=== PATIENT | male | born 1985 | race Hispanic/Latino ===

== ENCOUNTER 2024-09-25 21:55 | Inpatient (IN) | payer BC, SELFPAY ==
[2024-09-25] MEDS ORDERED: Cefepime 2 GM VIAL ONE (22:21)
[2024-09-25 23:00] LABS: Bilirubin 1+ (Negative); Blood, Urine 50 (Negative); Clarity Slightly Cloudy (Clear); Glucose, Urine (Dipstick) 100 mg/dL (Negative); Ketone, Urine 5 mg/dL (Negative); Leukocyte 100 (Negative); Nitrite Positive (Negative); Protein, Urine (Dipstick) 100 mg/dl (Neg-Trace); Specific Gravity, Urine 1.025 (1.005-1.030)
[2024-09-25] MEDS ORDERED: Ketorolac Tromethamine 30 MG (1 mL) VIAL ONE (23:09)
[2024-09-25 23:14] LABS: CAUTI Indications for Culture Pelvic or flank pain; RBC/HPF 0-3 HPF (0-3); WBC/HPF 21-50 HPF (0-3)
[2024-09-25 23:16] LABS: Bacteria/HPF 3+ HPF (None Seen)
[2024-09-25 23:17] LABS: Urine Culture Reflex Yes Yes
[2024-09-25 23:34] LABS: ALT (SGPT) 58 U/L (8-55); AST (SGOT) 46 U/L (5-34); Albumin 3.1 g/dL (3.5-5.0); Alkaline Phosphatase 53 U/L (40-110); Anion Gap 14 mmol/L (10-20); BUN (Urea Nitrogen) 16 mg/dL (8.9-20.6); Calc. Creatinine Clearance 0 mL/min (70-130); Calcium 8.4 mg/dL (7.8-10.44); Carbon Dioxide 25 mmol/L (22-29); Chloride 98 mmol/L (98-107); Estimated GFR 79; Glucose 159 mg/dL (70-105); Potassium 3.7 mmol/L (3.5-5.1); Protein, Total 7.1 g/dL (6.0-8.3); Sodium 133 mmol/L (136-145)
[2024-09-25 23:35] LABS: Hematocrit 42.1 % (38.8-50.0); Hemoglobin 14.5 g/dL (13.5-17.5); MDiff Complete? YES; Mean Corpuscular HGB CONC 34.4 g/dL (32.0-36.0); Mean Platelet Volume 11.6 fL (7.4-10.4); Platelet Count 119 10x3/uL (150-450); Red Blood Cell (RBC) Count 4.68 10x6/uL (4.32-5.72); White Blood Cell (WBC) Count 9.2 10x3/uL (3.5-10.5)
[2024-09-26 00:10] LABS: Band 35 % (5-11); Lymphocytes 2 % (21-51); Metamyelocyte 3 % (0-0); Monocytes 1 % (0-10); Neutrophil 59 % (42-75)
[2024-09-26 00:14] LABS: RBC Morph Comment Within Normal Limits
[2024-09-26 00:15] LABS: Large Platelets SLIGHT (None Seen); Platelet Adequacy Comment Appears Decreased; Vacuoles SLIGHT
[2024-09-26] MEDS ORDERED: Ondansetron ODT 4 MG TAB PO PRN (00:27)
[2024-09-26] MEDS ORDERED: Acetaminophen 650 MG Suppository PR PRN (00:27)
[2024-09-26] MEDS ORDERED: Ondansetron PF 4 MG/2 ML Vial IVP PRN (00:27)
[2024-09-26] MEDS ORDERED: Morphine 4 MG/ML VIAL ONE (00:47)
[2024-09-26] MEDS ORDERED: Morphine 2 MG/ML VIAL SLOW IVP PRN (00:51)
[2024-09-26 01:24] VITALS: BMI 45.8
[2024-09-26] MEDS: cefTRIAXone\\ROCEPHIN 1 GM in Sodium Chloride 0.9% 100 ML IVPB SCH (02:02)
[2024-09-26 02:15] LABS: #Basophils 0.03 10x3/uL (0.0-0.2); #Eosinophils 0.01 10x3/uL (0.0-0.5); #Monocytes 0.27 10x3/uL (0.0-1.1); #Neutrophils 10.01 10x3/uL (1.5-8.4); %Basophils 0.3 % (0.0-2.0); %Eosinophils 0.1 % (0.0-6.0); %Lymphocytes 3.9 % (18.0-47.0); %Monocytes 2.5 % (0.0-10.0); %Neutrophils 92.6 % (40.0-75.0); Hematocrit 40.8 % (38.8-50.0); Mean Corpuscular HGB CONC 34.3 g/dL (32.0-36.0); Mean Corpuscular Hemoglobin 30.6 pg (27.0-33.0); Mean Corpuscular Volume 89.3 fL (81.2-95.1); Mean Platelet Volume 11.3 fL (7.4-10.4); Platelet Count 112 10x3/uL (150-450); RBC Distribution Width 12.9 % (11.5-14.5); Red Blood Cell (RBC) Count 4.57 10x6/uL (4.32-5.72); White Blood Cell (WBC) Count 10.8 10x3/uL (3.5-10.5)
[2024-09-26 02:53] LABS: Anion Gap 15 mmol/L (10-20); BUN (Urea Nitrogen) 18 mg/dL (8.9-20.6); Calc. Creatinine Clearance 186 mL/min (70-130); Calcium 7.8 mg/dL (7.8-10.44); Carbon Dioxide 18 mmol/L (22-29); Chloride 104 mmol/L (98-107); Estimated GFR 91; Glucose 121 mg/dL (70-105); Potassium 3.8 mmol/L (3.5-5.1); Sodium 133 mmol/L (136-145)
[2024-09-26] MEDS: Hydrochlorothiazide 25 MG TAB PO SCH (08:19)
[2024-09-26] MEDS: Phenazopyridine HCl 95 MG TAB PO SCH (08:20)
[2024-09-26] MEDS: busPIRone HCl 15 MG TAB PO SCH ×2 (08:20→21:35)
[2024-09-26] MEDS: Escitalopram Oxalate 20 mg Tablet PO SCH (08:20)
[2024-09-26] MEDS: Enoxaparin 40 MG (0.4 mL) SYRINGE SC SCH (08:21)
[2024-09-26] MEDS ORDERED: hydrALAZINE 25 MG TAB PO SCH (09:00)
[2024-09-26] MEDS: Acetaminophen 325 MG TAB PO PRN (10:05)
[2024-09-26] MEDS: Ibuprofen 800 MG TAB PO SCH ×2 (11:01→21:36)
[2024-09-26 15:28] LABS: Chlam.trachomatis by PCR,Urine Not Detected (NotDetected); GC N.gonorrhoeae PCR,UrineVOID Not Detected (NotDetected)
[2024-09-26] MEDS ORDERED: Rosuvastatin 10 MG TAB PO SCH (21:00)
[2024-09-26] MEDS: Rosuvastatin 10 MG TAB PO SCH (21:34)
[2024-09-27 04:29] LABS: #Basophils 0.03 10x3/uL (0.0-0.2); #Eosinophils 0.25 10x3/uL (0.0-0.5); #Monocytes 0.46 10x3/uL (0.0-1.1); #Neutrophils 5.98 10x3/uL (1.5-8.4); %Basophils 0.4 % (0.0-2.0); %Eosinophils 3.3 % (0.0-6.0); %Lymphocytes 10.9 % (18.0-47.0); %Neutrophils 78.6 % (40.0-75.0); Hematocrit 39.4 % (38.8-50.0); Hemoglobin 13.4 g/dL (13.5-17.5); Mean Corpuscular Hemoglobin 30.5 pg (27.0-33.0); Mean Corpuscular Volume 89.5 fL (81.2-95.1); RBC Distribution Width 12.9 % (11.5-14.5); White Blood Cell (WBC) Count 7.6 10x3/uL (3.5-10.5)
[2024-09-27 05:02] LABS: Mean Platelet Volume 11.8 fL (7.4-10.4); Platelet Count 102 10x3/uL (150-450)
[2024-09-27] MEDS: Escitalopram Oxalate 20 mg Tablet PO SCH (08:55)
[2024-09-27] MEDS: Hydrochlorothiazide 25 MG TAB PO SCH (08:55)
[2024-09-27 10:46] LABS: Anion Gap 16 mmol/L (10-20); BUN (Urea Nitrogen) 10 mg/dL (8.9-20.6); Calc. Creatinine Clearance 251 mL/min (70-130); Calcium 8.7 mg/dL (7.8-10.44); Carbon Dioxide 19 mmol/L (22-29); Chloride 103 mmol/L (98-107); Estimated GFR 117; Glucose 259 mg/dL (70-105); Potassium 4.6 mmol/L (3.5-5.1); Sodium 133 mmol/L (136-145)
[2024-09-27] MEDS: Morphine 4 MG/ML VIAL SLOW IVP PRN (15:40)
[2024-09-28 04:47] LABS: Anion Gap 14 mmol/L (10-20); BUN (Urea Nitrogen) 8 mg/dL (8.9-20.6); Calc. Creatinine Clearance 279 mL/min (70-130); Calcium 8.7 mg/dL (7.8-10.44); Carbon Dioxide 24 mmol/L (22-29); Chloride 102 mmol/L (98-107); Estimated GFR 121; Glucose 142 mg/dL (70-105); Potassium 3.9 mmol/L (3.5-5.1); Sodium 136 mmol/L (136-145)
[2024-09-28 04:53] LABS: #Basophils 0.02 10x3/uL (0.0-0.2); #Eosinophils 0.15 10x3/uL (0.0-0.5); #Monocytes 0.62 10x3/uL (0.0-1.1); %Basophils 0.3 % (0.0-2.0); %Eosinophils 2.5 % (0.0-6.0); %Lymphocytes 18.2 % (18.0-47.0); %Monocytes 10.4 % (0.0-10.0); %Neutrophils 67.4 % (40.0-75.0); Hematocrit 37.8 % (38.8-50.0); Hemoglobin 13.1 g/dL (13.5-17.5); Mean Corpuscular HGB CONC 34.7 g/dL (32.0-36.0); Mean Corpuscular Hemoglobin 30.3 pg (27.0-33.0); Mean Corpuscular Volume 87.5 fL (81.2-95.1); Mean Platelet Volume 11.4 fL (7.4-10.4); Platelet Count 119 10x3/uL (150-450); Red Blood Cell (RBC) Count 4.32 10x6/uL (4.32-5.72); White Blood Cell (WBC) Count 5.9 10x3/uL (3.5-10.5)
[2024-09-28 12:11] VITALS: BP 144/79; TEMP 97.9
== END 2024-09-28 13:04 | disposition home or self-care (01) | DRG 872 ==
LOC: CSHERS 21:55 → CSHTELE 09-26 00:30
PROVIDERS: ADMIT Family Medicine; ATTEND Internal Medicine
DX: A41.51 Sepsis due to Escherichia coli [E. coli] (principal); N30.00 Acute cystitis without hematuria; Z68.42 Body mass index [BMI] 45.0-49.9, adult; E78.5 Hyperlipidemia, unspecified; I10 Essential (primary) hypertension; F39 Unspecified mood [affective] disorder; E66.01 Morbid (severe) obesity due to excess calories; Z79.899 Other long term (current) drug therapy
CPT/HCPCS: 36415; 74177; 80048; 80053; 81001; 83605; 85025; 87040; 87077; 87086; 87149; 87186; 87428; 87491; 87591; 93005; 94760; 94762; 96365; 96375; J0692; J0696; J1650; J1885; J2272